=== PATIENT | male | born 1965 | race Caucasian/White ===

== ENCOUNTER 2016-06-14 13:55 | Emergency (ER) | payer BC ==
[~2016-06-14] VITALS: Ht 180.3 cm; Wt 112.5 kg
[~2016-06-14 13:55] MED LIST: DENIES
[2016-06-14 14:06] VITALS: Ht 180.3 cm; Wt 112.5 kg
[2016-06-14] MEDS ORDERED: SOD CHLORIDE 0.9% 1,000 ML IV ONE (16:00)
[2016-06-14] MEDS ORDERED: ENALAPRILAT 1.25 MG INJ IV ONE (16:00)
[2016-06-14] MEDS ORDERED: ALPRAZOLAM 0.25 MG TAB PO ONE (16:00)
[2016-06-14 16:07] LABS: ADD SCAN DIFF NO
[2016-06-14 16:10] LABS: BASOPHIL # 0.1 10^3/ul (0.0-0.1); BASOPHILS % 0.6 % (0.0-2.0); EOSINOPHILS # 0.6 10^3/ul (0.0-0.5); EOSINOPHILS % 7.2 % (0.0-7.0); HEMATOCRIT 45.4 % (42.0-52.0); HEMOGLOBIN 15.6 g/dl (14.0-18.0); LYMPHOCYTES # 2.4 10^3/ul (0.8-2.9); LYMPHOCYTES % 28.4 % (15.0-51.0); MEAN CORPUSCULAR HEMOGLOBIN 29.8 pg (29.0-33.0); MEAN CORPUSCULAR HGB CONC 34.4 g/dl (32.0-37.0); MEAN CORPUSCULAR VOLUME 86.6 fl (82.0-101.0); MEAN PLATELET VOLUME 9.9 fl (7.4-10.4); MONOCYTE # 0.6 10^3/ul (0.3-0.9); MONOCYTES % 6.7 % (0.0-11.0); NEUTROPHIL # 4.7 10^3/ul (1.6-7.5); NEUTROPHILS % 55.9 % (39.0-77.0); PLATELET COUNT 222 10^3/UL (140-415); RED BLOOD COUNT 5.24 10^6/ul (4.70-6.10); RED CELL DISTRIBUTION WIDTH 12.5 % (11.5-14.5); WHITE BLOOD COUNT 8.4 10^3/ul (4.8-10.8)
[2016-06-14 16:27] LABS: ALBUMIN 4.4 g/dl (3.3-4.9)
[2016-06-14 16:28] LABS: CHLORIDE 100 mmol/L (97-110); POTASSIUM 3.7 mmol/L (3.5-5.1); SODIUM 136 mmol/L (135-144)
[2016-06-14 16:30] LABS: ALBUMIN/GLOBULIN RATIO 1.25; ALKALINE PHOSPHATASE 83 IU/L (42-121); ANION GAP 11 (8-16); ASPARTATE AMINO TRANSFERASE 29 IU/L (15-46); BILIRUBIN,INDIRECT 0.3 mg/dl (0-1.1); BILIRUBIN,TOTAL 0.3 mg/dl (0.2-1.3); BLOOD UREA NITROGEN 10 mg/dl (7-20); CARBON DIOXIDE 29 mmol/L (21-31); CREATININE 0.74 mg/dl (0.61-1.24); TOTAL PROTEIN 7.9 g/dl (6.1-8.1)
[2016-06-14 16:31] LABS: ALANINE AMINOTRANSFERASE 35 IU/L (13-69); CALCIUM 8.7 mg/dl (8.4-10.2); GLUCOSE 95 mg/dl (70-220)
--- NOTE | 2016-06-14 16:41 | RADRPT ---
PROCEDURE: XR Chest. CLINICAL INDICATION: chest pain, abdominal pain TECHNIQUE: Single frontal view of the chest was obtained COMPARISON: None FINDINGS: The heart and mediastinum are within normal limits. There is mild elevation of the right diaphragm. The lungs are clear. There is no pleural effusion or pneumothorax. RPTAT: AA IMPRESSION: No acute disease. .Saji Sherman MD, MD Date Time Electronically viewed and signed by .Saji Sherman MD, on 06/14/2016 16:40 .S/
[2016-06-14 16:46] LABS: TROPONIN-I < 0.012 ng/ml (0.00-0.12)
[2016-06-14 16:47] LABS: FREE T3 3.99 pg/ml (2.77-5.27)
[2016-06-14] MEDS ORDERED: HYDROCHLOROTHIAZIDE 50 MG TAB PO ONE (17:30)
[2016-06-14] MEDS ORDERED: HYD25 PO (17:42)
--- NOTE | 2016-06-14 17:44 | ERD ---
ER Documentation Chief Complaint Date/Time DATE: 06/14/16 TIME: 17:42 Chief Complaint HTN, HEADACHE, CHEST PAIN X1 WEEK. BP 168/112 IN TRIAGE. HPI 50-year-old man presents with hypertension, he does have a long history of hypertension but is noncompliant with his medications, he states with elevated blood pressure he experiences headaches. Symptoms present for 1 week, patient denies slurred speech, no weakness in his arms or legs, no chest pain or shortness of breath. ROS All systems reviewed and are negative except as per history of present illness. Medications Home Meds Active Scripts Hydrochlorothiazide* (Hydrochlorothiazide*) 25 Mg Tab, 50 MG PO DAILY, #30 TAB Prov:DECLAN THRASHER MD 06/14/16 Discontinued Reported Medications [Denies] No Conflict Check 03/28/12 Allergies Allergies: Coded Allergies: No Known Allergy (Unverified , 06/14/16) PMhx/Soc Hypertension Medical and Surgical Hx: pt denies Surgical Hx History of Surgery: No Anesthesia Reaction: No Hx Neurological Disorder: No Hx Respiratory Disorders: No Hx Cardiac Disorders: Yes (HTN) Hx Psychiatric Problems: No Hx Miscellaneous Medical Probl: No Hx Alcohol Use: No Hx Substance Use: No Hx Tobacco Use: No Smoking Status: Never smoker FmHx Family History: No diabetes Physical Exam Vitals Vital Signs Date Time Temp Pulse Resp B/P Pulse Ox O2 Delivery O2 Flow Rate FiO2 06/14/16 18:35 98.4 73 18 145/84 100 Room Air 06/14/16 17:16 78 18 148/93 06/14/16 15:40 84 16 161/106 100 Room Air 06/14/16 14:06 98.4 80 16 168/112 98 Physical Exam GENERAL: Well-developed, well-nourished, well-hydrated, in no apparent distress , looks nontoxic in appearance HEENT: Moist mucous membranes, pink conjunctiva, no cervical spine tenderness or step-off deformities, no goiter, no jaundice or icterus, extraocular movements intact without pain. No submandibular induration, and no pharyngeal erythema NEURO: Alert and oriented 3, cranial nerves II through XII intact bilaterally, pupils equal round reactive to light, no focal deficits or facial asymmetry, sensation intact distally Strength 5/5 in upper and lower extremities bilaterally CARDIAC: Regular rate and rhythm, no murmurs rubs or gallops LUNGS: Clear bilaterally no wheezing crackles or stridor ABDOMEN: Soft nontender, no guarding, no rigidity, no rebound, no psoas sign no obturator sign. Normoactive bowel sounds SKIN: Warm and dry to touch, no abrasions, contusions, or hematomas, no lacerations, no ecchymosis, no target lesions, and without ulcers EXTREMITIES: No clubbing cyanosis or edema, calves are bilaterally symmetrical, no Homans sign, no popliteal cord sign. Distal pulses equal and bilateral PSYCH: Normal affect without agitation or irritability Result Diagram: 06/14/16 1600 06/14/16 1600 Results 24 hrs Laboratory Tests Test 06/14/16 16:00 White Blood Count 8.410^3/ul Red Blood Count 5.2410^6/ul Hemoglobin 15.6g/dl Hematocrit 45.4% Mean Corpuscular Volume 86.6fl Mean Corpuscular Hemoglobin 29.8pg Mean Corpuscular Hemoglobin Concent 34.4g/dl Red Cell Distribution Width 12.5% Platelet Count 69703^3/UL Mean Platelet Volume 9.9fl Neutrophils % 55.9% Lymphocytes % 28.4% Monocytes % 6.7% Eosinophils % 7.2% Basophils % 0.6% Nucleated Red Blood Cells % 0.0/100WBC Neutrophils # 4.710^3/ul Lymphocytes # 2.410^3/ul Monocytes # 0.610^3/ul Eosinophils # 0.610^3/ul Basophils # 0.110^3/ul Nucleated Red Blood Cells # 0.010^3/ul Sodium Level 136mmol/L Potassium Level 3.7mmol/L Chloride Level 100mmol/L Carbon Dioxide Level 29mmol/L Anion Gap 11 Blood Urea Nitrogen 10mg/dl Creatinine 0.74mg/dl Glucose Level 95mg/dl Calcium Level 8.7mg/dl Total Bilirubin 0.3mg/dl Direct Bilirubin 0.00mg/dl Indirect Bilirubin 0.3mg/dl Aspartate Amino Transf (AST/SGOT) 29IU/L Alanine Aminotransferase (ALT/SGPT) 35IU/L Alkaline Phosphatase 83IU/L Troponin I < 0.012ng/ml Total Protein 7.9g/dl Albumin 4.4g/dl Globulin 3.50g/dl Albumin/Globulin Ratio 1.25 Lipase 95U/L Thyroid Stimulating Hormone (TSH) 2.350MIU/L Free Thyroxine 0.99ng/dl Free Triiodothyronine (T3) pg/mL 3.99pg/ml Current Medications Medications (Trade) Dose Ordered Sig/Agapito Route PRN Reason Start Time Stop Time Status Last Admin Dose Admin Enalaprilat 1.25 mg 1.25 mg ONCE ONCE IV 06/14/16 16:00 06/14/16 16:01 DC 06/14/16 16:20 Sodium Chloride (NS) 1,000 ml @ 1,000 mls/hr Q1H ONCE IV 06/14/16 16:00 06/14/16 16:59 DC 06/14/16 16:20 Alprazolam (Xanax) 0.5 mg ONCE ONCE PO 06/14/16 16:00 06/14/16 16:01 DC 06/14/16 16:20 Hydrochlorothiazide (Hydrochlorothiazide) 50 mg ONCE ONCE PO 06/14/16 17:30 06/14/16 17:31 DC Hydrochlorothiazide (Hydrochlorothiazide) 50 mg ONCE ONCE PO 06/14/16 18:00 06/14/16 18:01 DC 06/14/16 18:03 Hydromorphone HCl (Dilaudid) 0.5 mg ONCE STAT IV 06/14/16 17:48 06/14/16 17:49 DC 06/14/16 18:02 Procedures/MDM IV line was established patient was placed on secured entrance monitor rhythm strip revealed a sinus rhythm at about 80 bpm with upright P and T waves. EKG performed, read by me: 83 bpm, normal sinus rhythm, normal axis, no acute ST segment changes, narrow QRS complex, with good R-wave progression in precordial leads. One AP view of the chest performed, read by me reveals no acute infiltrates, normal mediastinum, sharp costophrenic and cardiac borders, no air under the diaphragm. Otherwise unremarkable chest x-ray. I administered 1 L normal saline intravenously and Toradol 15 mg IV with good response. For hypertension he received enalapril 1.25 mg IV and hydrochlorothiazide 50 mg p.o. he also received alprazolam 0.5 mg p.o. Systolic blood pressure fell about 30 points. CBC and electrolytes are normal, liver function tests are normal, troponin was negative. Differential diagnoses considered, included but not limited to acute coronary syndrome, pulmonary embolism, aortic dissection, abdominal aortic aneurysm, sepsis, stroke, meningitis, encephalitis, pneumonia, appendicitis, cholecystitis , bowel obstruction, pyelonephritis, nephrolithiasis, cystitis, as well as metabolic, hematologic, and electrolyte abnormalities. As well as abscess, cellulitis, fractures, and dislocations. Patient feels much better at this time, and vital signs are normal, symptoms have improved. I did give strict instructions to return to the ED if symptoms continue or worsen, patient will otherwise follow-up with primary care physician. Patient understood instructions and agreed to plan. Departure Diagnosis: Primary Impression: Hypertension Hypertension type: essential hypertension Qualified Code: I10 - Essential hypertension Additional Impression: Cephalgia Headache type: tension-type Headache chronicity pattern: unspecified pattern Intractability: not intractable Qualified Code: G44.209 - Tension- type headache, not intractable, unspecified chronicity pattern Condition: Good Patient Instructions: High Blood Pressure (Hypertension) DECLAN THRASHER MD Jun 14, 2016 17:44
[2016-06-14] MEDS ORDERED: HYDROmorphONE 1 MG/ML SYG IV STA (17:48)
[2016-06-14] MEDS ORDERED: HYDROCHLOROTHIAZIDE 25 MG TAB PO ONE (18:00)
[2016-06-14 18:35] VITALS: BP 145/84; PULSE 73; RESP 18; TEMP 98.4
== END 2016-06-14 18:36 | disposition home or self-care (01) ==
LOC: E/R 13:55
DX: I10 Essential (primary) hypertension (principal); G44.209 Tension-type headache, unspecified, not intractable
CPT/HCPCS: 36415; 71010; 80053; 83690; 84439; 84443; 84481; 84484; 85025; 93005; 96374; 96375; 99285; J1170; J7030; Z7610